=== PATIENT | female | born 1955 | race Caucasian/White ===

== ENCOUNTER → 2017-08-05 | Outpatient (CLI) | payer OTHER ==
[~2017-08-05] MED LIST: AMBIEN CR PO; BUPR-472 PO; CETI-176 PO; ELETR40PT PO; FLUT16SP19 NS; LEVO175T42 PO; LEVOXYL PO; MOME220A3 INH; MONT10TA PO; MULT1TAB64 PO; PANT20TA27 PO; PRAM0.1225 PO; PRED-1 PO; PRED20TA6 PO; PREMPRO PO; RANI-320 PO; RANI75TA5 PO; ROPI1TAB36 PO; SINGULAIR PO; WELLBUTRIN PO; ZOLP-1 PO; [UNRECOGNIZED DRUG - CODE] PO; [UNRECOGNIZED DRUG - OTHER] PO; mylanta PO
[2017-08-05 09:56] LABS: PLATELET COUNT, AUTOMATED 494 K/uL (150-450)
== END ==
LOC: LAB 09:18
PROVIDERS: ATTEND Internal Medicine
DX: K90.0 Celiac disease (principal); G43.909 Migraine, unspecified, not intractable, without status migrainosus; E78.5 Hyperlipidemia, unspecified; E03.9 Hypothyroidism, unspecified; L50.9 Urticaria, unspecified
CPT/HCPCS: 36415; 81001; 82040; 82247; 82310; 82374; 82435; 82565; 82947; 83036; 84075; 84132; 84155; 84295; 84439; 84443; 84450; 84460; 84520; 85025

== ENCOUNTER 2017-08-25 09:28 | Outpatient (RCR) | payer OTHER ==
[~2017-08-25] VITALS: Ht 167.6 cm; Wt 83.0 kg
[~2017-08-25 09:28] MED LIST changes: +ESTR42.5 VA
[2017-08-26] MEDS ORDERED: FAMC250T4 PO (12:07)
--- NOTE | 2017-08-26 16:17 | Medical Nutrition Therapy ---
Nutrition Anthropometrics Height (Inches): 66 (stated) Weight (Pounds): 184 Al Nutrition Score: Al Nutrition Risk Score: Dietary Referral Nutrition Risk Factors: Nutrition Risk Comment: Nutrition/Food History Breakfast: GF toast or GF cold cereal and milk Lunch: GF sandwich Dinner: starch and meat Snacks: cookies, candy, or popcorn Nutritional Education Nutrition Education Topic: Diabetic Nutrition Learning Readiness: Interested Teaching Methods: Discussion, Handout, Demonstration Response to Teaching: Verbalize understanding Teaching Recipient: Patient Nutrition Counseling: Pt stated interested in information to lower her A1c. Pt states has gained wt and interested in wt loss. Pt is celiac and also has hyperlipidemia. Reviewed glycemic response to CHO. Pt uses GF starches which are lower fiber and higher glycemic index. Discussed GF starches that would have less glycemic response. Pt stated diet very low in fruits and veg. Reviewed plate method and recommended trying it as a lifestlye approach to controlling diabetes. Reviewed CHO counting and provided meal plan of 30-45gm CHO or 1c CHO/meal using plate method. Reviwed heart healhy foods and fats Pt refused additional diabetic classes but did agree to f/u with weigh-in to help with wt loss. Nutrition Monitoring & Eval RD Patient Assessment Time: 60 minutes Nutritional Comment: Provided 60 minutes diabetes eduction focusing on nutrition Copies To Copies to: SUZI JACKSON MD, BETH Aug 26, 2017 16:17
[2017-09-13] MEDS ORDERED: PRED-1 PO (16:34)
--- NOTE | 2017-09-24 15:48 | Medical Nutrition Therapy ---
Nutrition Anthropometrics Height (Inches): 66 (stated) Weight (Pounds): 183 Al Nutrition Score: Al Nutrition Risk Score: Dietary Referral Nutrition Risk Factors: Nutrition Risk Comment: Nutritional Education Nutrition Education Topic: Diabetic Nutrition Learning Readiness: Interested Response to Teaching: Verbalize understanding Teaching Recipient: Patient Nutrition Counseling: Wt is down 1#. Pt states having issues with constipation. Pt is on gluten free with diabetic diet. Discussed how to increase fiber in diet as many gluten free grains are low fiber. Encourage prunes/ prune juice, possible a fiber supplement. Stressed improtance of increasing fluids. Pt will cont to f/u with weigh-in. Nutrition Monitoring & Eval RD Patient Assessment Time: [address] Assessment Type: RD Education Nutritional Comment: Provided 15 minutes f/u MNT for diabetes and celiac Copies To Copies to: SUZI JACKSON MD, BETH Mar 10, 2018 15:47
== END 2017-09-29 ==
LOC: DIET 09:28
PROVIDERS: ATTEND Internal Medicine
DX: E11.3293 Type 2 diabetes mellitus with mild nonproliferative diabetic retinopathy without macular edema, bilateral (principal); E78.5 Hyperlipidemia, unspecified
CPT/HCPCS: 97803; G0108

== ENCOUNTER → 2017-10-26 | Outpatient (CLI) | payer OTHER ==
[~2017-10-26] MED LIST changes: +CETI-169 PO; +FAMC250T4 PO
== END ==
LOC: LAB 08:49
PROVIDERS: ATTEND Otolaryngology
DX: L50.9 Urticaria, unspecified (principal)
CPT/HCPCS: 36415; 86003

== ENCOUNTER → 2017-11-25 | Outpatient (CLI) | payer OTHER ==
[~2017-11-25] MED LIST changes: +LEVO200T50 PO; +PRE5 PO
[2017-11-25 09:41] LABS: PLATELET COUNT, AUTOMATED 380 K/uL (150-450)
== END ==
LOC: LAB 09:13
PROVIDERS: ATTEND Internal Medicine
DX: L50.9 Urticaria, unspecified (principal); E78.5 Hyperlipidemia, unspecified; E03.9 Hypothyroidism, unspecified; E11.9 Type 2 diabetes mellitus without complications
CPT/HCPCS: 36415; 82040; 82247; 82310; 82374; 82435; 82565; 82947; 83036; 84075; 84132; 84155; 84295; 84439; 84443; 84450; 84460; 84520; 85025; 85651; 86038; 86140

== ENCOUNTER → 2018-02-17 | Outpatient (CLI) | payer OTHER ==
[~2018-02-17] MED LIST changes: +TRIA15CR40 TP
== END ==
LOC: LAB 11:17
PROVIDERS: ATTEND Internal Medicine Endocrinology, Diabetes & Metabolism
DX: L50.8 Other urticaria (principal); E06.3 Autoimmune thyroiditis; Z79.899 Other long term (current) drug therapy
CPT/HCPCS: 36415; 82040; 82247; 82310; 82374; 82435; 82565; 82947; 84075; 84132; 84155; 84295; 84450; 84460; 84520

== ENCOUNTER → 2018-06-20 | Outpatient (CLI) | payer OTHER ==
[~2018-06-20] MED LIST changes: +BENZ100C4 PO; +OMAL150V2 SQ; -RANI75TA5 PO; +RANI75TA51 PO
[2018-06-20 14:13] LABS: PLATELET COUNT, AUTOMATED 464 K/uL (150-450)
--- NOTE | 2018-06-21 09:52 | EKG ---
FACILITY: [facility] PATIENT NAME: JUDITH SOLORIO : [id number] MR: [id number] V: [id number] EXAM DATE: ORDERING PHYSICIAN: SUZI JACKSON TECHNOLOGIST: SHON Valdivia Reason : TACHYCARDIA Blood Pressure : / mmHG Vent. Rate : 103 BPM Atrial Rate : 103 BPM P-R Int : 168 ms QRS Dur : 082 ms QT Int : 346 ms P-R-T Axes : 067 051 040 degrees QTc Int : 453 ms Sinus tachycardia Otherwise normal ECG Referred By: JENA Confirmed By:
== END ==
LOC: LAB 13:33
PROVIDERS: ATTEND Internal Medicine
DX: E03.9 Hypothyroidism, unspecified (principal); L50.9 Urticaria, unspecified; R05 Cough; R00.0 Tachycardia, unspecified
CPT/HCPCS: 36415; 82040; 82247; 82310; 82374; 82435; 82565; 82947; 83036; 84075; 84132; 84155; 84295; 84439; 84443; 84450; 84460; 84520; 85025

== ENCOUNTER 2018-08-29 08:30 | Outpatient (RCR) | payer OTHER ==
[2018-06-07 09:53] VITALS: BP 110/70
[2018-06-07 10:46] VITALS: BP 107/60
[2018-06-07 11:58] VITALS: BP 104/83
[2018-07-05 08:23] VITALS: BP 140/89
[2018-08-02 08:35] VITALS: BP 118/72
[2018-08-02 09:49] VITALS: BP 140/79
[~2018-08-29 08:30] MED LIST changes: +OMALIZUMAB 150 MG SVD SQ ONE
[2018-08-29 08:38] VITALS: BP 140/95
[2018-08-29] MEDS ORDERED: OMALIZUMAB 150 MG SVD SQ ONE ×2 (09:30)
[2018-08-29 10:23] VITALS: BP 112/82
== END 2018-09-05 ==
LOC: SPU 08:30
PROVIDERS: ATTEND Internal Medicine Clinical & Laboratory Immunology
DX: L50.8 Other urticaria (principal)
CPT/HCPCS: 96372; J2357

== ENCOUNTER → 2018-09-12 | Outpatient (CLI) | payer OTHER ==
[~2018-09-12] MED LIST changes: -OMALIZUMAB 150 MG SVD SQ ONE
--- NOTE | 2018-09-14 10:32 | RADIOLOGY IMAGING REPORT ---
[place] [facility] [place] NAME: JUDITH SOLORIO : [id number] MR: [id number] V: [id number] EXAM DATE: [id number] ORDERING PHYSICIAN: SUZI JACKSON TECHNOLOGIST: Dolores Richey PROCEDURE:BILATERAL DIGITAL SCREENING MAMMOGRAM WITH CAD ASSISTED INTERPRETATION & 3D TOMOSYNTHESIS COMPARISON:Prior mammograms 08/17/16, 05/15/15, 02/08/14, 02/12/13. INDICATIONS:SCREENING FINDINGS: There are areas of scattered fibroglandular density throughout the breasts. The parenchymal pattern has remained stable allowing for difference in mammographic technique & patient positioning. Again there is a fatty replaced lymph node in the upper outer quadrant of the Right breast in the middle 1/3. DIAGNOSTIC CATEGORY 2--BENIGN FINDING. RECOMMENDATIONS: ROUTINE MAMMOGRAM AND CLINICAL EVALUATION. IMPRESSION: BIRADS 2: Benign finding. No significant abnormality is seen. Dictated by: Libertad Melissa M.D. on 09/12/2018 at 9:01 Transcribed by: CHRISTIANO on 09/12/2018 at 9:40 Approved by: Libertad Melissa M.D. on 09/12/2018 at 17:13 [facility]
== END ==
LOC: MAMO 02:02
PROVIDERS: ATTEND Internal Medicine
DX: Z12.31 Encounter for screening mammogram for malignant neoplasm of breast (principal)
CPT/HCPCS: 77063; 77067

== ENCOUNTER 2018-12-12 09:29 | Outpatient (RCR) | payer OTHER ==
[2018-09-26 08:42] VITALS: BP 97/79
[2018-09-26 09:48] VITALS: BP 107/69
[2018-10-31 13:09] VITALS: BP 84/55
[2018-10-31 13:50] VITALS: BP 88/67
[2018-11-21 09:23] VITALS: BP 108/68
[~2018-12-12 09:29] MED LIST changes: +OMALIZUMAB 150 MG SVD SQ ONE
[2018-12-12] MEDS ORDERED: OMALIZUMAB 150 MG SVD SQ ONE (11:00)
[2018-12-12 12:44] VITALS: BP 95/64
[2018-12-18] MEDS ORDERED: ELETR40PT PO (08:39)
== END 2018-12-24 ==
LOC: SPU 09:29
PROVIDERS: ATTEND Internal Medicine Clinical & Laboratory Immunology
DX: L50.8 Other urticaria (principal)
CPT/HCPCS: 96372; J2357

== ENCOUNTER → 2019-02-22 | Outpatient (CLI) | payer OTHER ==
[~2019-02-22] MED LIST changes: +HYDR-385 PO; +HYDR200T77 PO; -OMALIZUMAB 150 MG SVD SQ ONE
[2019-02-22 12:05] LABS: PLATELET COUNT, AUTOMATED 388 K/uL (150-450)
[2019-02-22 12:50] LABS: LDL CHOLESTEROL 78 mg/dl
--- NOTE | 2019-02-22 14:18 | RADIOLOGY IMAGING REPORT ---
[facility] PATIENT NAME: Mary Desir : 1955 MR: [id number] V: [id number] EXAM DATE: ORDERING PHYSICIAN: SUZI JACKSON TECHNOLOGIST: Location: [facility] [place] Patient: Mary Desir : 1955 Visit/Account:[id number] Date of Sevice: 02/22/2019 Exam type: KNEE 3 VIEW RIGHT History: rt knee pain Comparison: Right tibia and fibula April 01, 2008 . Findings: There is an intramedullary homar identified in the proximal diaphysis metaphysis of the right tibia. T here is no evidence of acute fracture-dislocation involving the right knee. There mild to moderate d egenerative changes involving the medial patellofemoral compartments. This mild joint space narrowin g involving the lateral compartment with marginal spurring These degenerative changes are slightly mo re advanced when compared to April 01, 2008 IMPRESSION: 1. Old postoperative changes of the right tibia as described Tricompartmental degenerative changes of the right knee as described Report Dictated By: Libertad Melissa MD at 02/22/2019 2:06 PM Report E-Signed By: Libertad Melissa MD at 02/22/2019 2:08 PM WSN:[email or web address]
== END ==
LOC: LAB 11:18
PROVIDERS: ATTEND Internal Medicine
DX: M25.561 Pain in right knee (principal); M17.12 Unilateral primary osteoarthritis, left knee
CPT/HCPCS: 36415; 82040; 82247; 82310; 82374; 82435; 82465; 82565; 82947; 83036; 83718; 84075; 84132; 84155; 84295; 84439; 84443; 84450; 84460; 84478; 84520; 84550; 85025; 85651; 86140; 86430